=== PATIENT | male | born 1960 | race Caucasian/White ===

== ENCOUNTER 2020-04-08 14:43 | Emergency (ER) | payer SELFPAY ==
--- NOTE | 2020-04-08 16:21 | EDM.PDOC ---
ED HPI GENERAL MEDICAL PROBLEM - General Chief Complaint: Wound Recheck Stated Complaint: LEFT LEG ABOVE ANKLE RECHECK INFECTION Time Seen by Provider: 04/08/20 16:14 Source of Information: Reports: Patient, RN Notes Reviewed History Limitations: Reports: No Limitations - History of Present Illness INITIAL COMMENTS - FREE TEXT/NARRATIVE: 60-year-old gentleman presents emergency department today for wound check, he was admitted to the hospital in [place] last week had asked him to follow-up with his primary care for wound check however he is homeless and he happens to be traveling to the area though he thought he stop into the emergency department to have his wound rechecked. He was admitted to the hospital for cellulitis left lower extremity - Related Data Allergies Allergy/AdvReac Type Severity Reaction Status Date / Time No Known Allergies Allergy Verified 04/08/20 15:21 Home Meds: Home Meds NK [No Known Home Meds] 04/08/20 [History] Past Medical History Dermatologic History: Reports: Cellulitis - Infectious Disease History Infectious Disease History: Reports: Chicken Pox Social & Family History - Tobacco Use Smoking Status *Q: Current Every Day Smoker Years of Tobacco use: 35 Packs/Tins Daily: 0.5 - Caffeine Use Caffeine Use: Reports: Coffee, Soda - Recreational Drug Use Recreational Drug Use: No ED ROS GENERAL - Review of Systems Review Of Systems: See Below Constitutional: Reports: No Symptoms Skin: Reports: Wound ED EXAM, GENERAL - Physical Exam Exam: See Below Free Text/Narrative:: Examination of the lower extremity shows a healing wound consistent with a venous stasis ulcer type wound he does have +2 pitting edema bilaterally Exam Limited By: No Limitations General Appearance: Alert, WD/WN, No Apparent Distress Course - Vital Signs Last Recorded V/S: Last Vital Signs Temp 97.5 F 04/08/20 15:25 Pulse 78 04/08/20 15:25 Resp 16 04/08/20 15:25 BP 146/85 H 04/08/20 15:25 Pulse Ox 98 04/08/20 15:25 Departure - Departure Time of Disposition: 16:20 Disposition: Home, Self-Care 01 Condition: Poor Clinical Impression: Visit for wound check - Discharge Information Referrals: PCP,None [Primary Care Provider] - Additional Instructions: Recommend obtaining compression hose at the pharmacy, continue to use them to relieve the pressure of your lower extremities, please follow-up with your primary care for further evaluation Sepsis Event Note (ED) - Evaluation Sepsis Screening Result: No Definite Risk - Focused Exam Vital Signs: Vital Signs Temp Pulse Resp BP Pulse Ox 04/08/20 15:25 97.5 F 78 16 146/85 H 98 04/08/20 15:15 97.5 F 78 16 146/85 H 98 - Assessment/Plan Plan: Assessment Acuity = acute Site and laterality = wound check Etiology = venous stasis dermatitis Manifestations = none Location of injury = Home Lab values = none Plan Recommend compression hose to help relieve some of the pressure on his skin good follow-up with a primary care however he is homeless this is difficult at this time This note was dictated using [employer] voice recognition software please call with any questions on syntax or grammar.
== END 2020-04-08 16:28 | disposition home or self-care (01) ==
LOC: JP.ED 14:43
DX: Z48.00 Encounter for change or removal of nonsurgical wound dressing (principal); R60.0 Localized edema; F17.210 Nicotine dependence, cigarettes, uncomplicated
CPT/HCPCS: 99282